=== PATIENT | male | born 1950 | race Two or more races ===

== ENCOUNTER 2021-05-18 14:34 | Outpatient (CLI) | payer OTHER | END 2021-05-18 14:42 | disposition home or self-care (01) | LOC: MRI 14:34 | PROVIDERS: ATTEND Orthopaedic Surgery | DX: M25.462 Effusion, left knee (principal); S83.015D Lateral dislocation of left patella, subsequent encounter; S83.212A Bucket-handle tear of medial meniscus, current injury, left knee, initial encounter | CPT/HCPCS: 73721 ==